=== PATIENT | female | born 1975 | race African-American/Black ===

== ENCOUNTER 2021-02-23 11:15 | Emergency (ER) | payer OTHER, SELFPAY ==
[2021-02-23] MEDS ORDERED: HYDROcodone/Acetaminophen 7.5/325 mg Tablet ONE (12:27)
== END 2021-02-23 13:00 | disposition home or self-care (01) ==
LOC: ERS 11:15
DX: S62.314A Displaced fracture of base of fourth metacarpal bone, right hand, initial encounter for closed fracture (principal); S62.316A Displaced fracture of base of fifth metacarpal bone, right hand, initial encounter for closed fracture; W01.0XXA Fall on same level from slipping, tripping and stumbling without subsequent striking against object, initial encounter
CPT/HCPCS: 26600

== ENCOUNTER 2022-04-17 14:15 | Outpatient (CLI) | payer OTHER | END 2022-04-17 14:16 | disposition home or self-care (01) | LOC: BICMAMMO 14:15 | PROVIDERS: ATTEND Student in an Organized Health Care Education/Training Program | DX: Z12.31 Encounter for screening mammogram for malignant neoplasm of breast (principal); R92.1 Mammographic calcification found on diagnostic imaging of breast; Z80.3 Family history of malignant neoplasm of breast | CPT/HCPCS: 77063; 77067 ==